=== PATIENT | male | born 1980 | race Asian ===

== ENCOUNTER 2018-05-01 01:09 | Emergency (ER) | payer OTHER ==
[2018-05-01 01:27] LABS: BASOPHIL (%) 0.4 % (0-1); EOSINOPHIL COUNT 0.3 K/uL (0-0.3); HEMATOCRIT 42.7 % (38.0-50.0); HEMOGLOBIN 15.3 G/DL (12.5-16.6); IMMATURE GRANULOCYTE (%) 0.6 % (0.0-0.7); LYMPHOCYTE (%) 40.3 % (15-42); LYMPHOCYTE COUNT 3.9 K/uL (1.0-2.8); MCH 30.4 PG (29.0-34.0); MCHC 35.8 G/DL (30.0-36.0); MCV 84.9 FL (86-99); MONOCYTE (%) 3.8 % (3-12); MONOCYTE COUNT 0.4 K/uL (0-0.8); NEUTROPHIL (%) 51.9 % (45-76); PLATELET COUNT 225 K/uL (156-360); RBC DIS.WIDTH-CV 12.5 % (11.8-14.6); RBC DIS.WIDTH-SD 37.8 % (39-53); RED BLOOD COUNT 5.03 M/uL (4.00-5.50); WHITE BLOOD COUNT 9.6 K/uL (4.1-10.2)
[2018-05-01 01:54] LABS: AMYLASE 49 IU/L (1-118); CHLORIDE 104 MEQ/L (99-109); CREATININE 1.3 MG/DL (0.6-1.3); GFR ESTIMATE (CALCULATED) > 59 mL/min/ (58.99-99999); GLUCOSE 107 mg/dL (70-99); LIPASE 106 U/L (1.0-51.0); POTASSIUM 3.8 MEQ/L (3.7-5.4); SERUM ETHYL ALCOHOL 215 mg/dL; SODIUM 137 MEQ/L (136-147); UREA NITROGEN (BUN) 13 mg/dL (9-23)
[2018-05-01 03:41] LABS: APPEARANCE CLEAR ((CLEAR)); BILIRUBIN NEGATIVE; BLOOD MODERATE; COLOR STRAW ((YELLOW)); GLUCOSE (STRIP) NEGATIVE; KETONES NEGATIVE; LEUKOCYTES NEGATIVE; NITRITE NEGATIVE; PROTEIN (STRIP) 100; SPECIFIC GRAVITY 1.024 (1.000-1.030); UROBILINOGEN 0.2 MG/DL (0.2-1.0)
[2018-05-01 04:00] LABS: AMPHETAMINE NEGATIVE (500 ng/mL); BARBITURATES NEGATIVE (200 ng/mL); BENZODIAZEPINES NEGATIVE (150 ng/mL); BUPRENORPHINE NEGATIVE (10 ng/mL); COCAINE NEGATIVE (150 ng/mL); METHADONE NEGATIVE (200 ng/mL); METHAMPHETAMINE NEGATIVE (500 ng/mL); OPIATES (MORPHINE) NEGATIVE (100 ng/mL); OXYCODONE NEGATIVE (100 ng/mL); PHENCYCLIDINE NEGATIVE (25 ng/mL); PROPOXYPHENE NEGATIVE (300 ng/mL); THC CANNABINOIDS NEGATIVE (50 ng/mL); TRICYCLIC ANTIDEPRESSANTS NEGATIVE (300 ng/mL)
[2018-05-01 04:31] LABS: BACTERIA NONE SEEN /HPF; EPITHELIAL CELLS RARE /HPF; MUCUS NONE SEEN /LPF; RED BLOOD CELLS 0-5 /HPF (0-5); UCUL ADDED? YES
== END 2018-05-01 05:22 | disposition short-term general hospital (02) ==
LOC: TRA 01:09
PROVIDERS: Emergency Medicine
DX: S06.6X9A Traumatic subarachnoid hemorrhage with loss of consciousness of unspecified duration, initial encounter (principal); S72.002A Fracture of unspecified part of neck of left femur, initial encounter for closed fracture; S35.402A Unspecified injury of left renal artery, initial encounter; V03.90XA Pedestrian on foot injured in collision with car, pick-up truck or van, unspecified whether traffic or nontraffic accident, initial encounter; Y93.01 Activity, walking, marching and hiking; Y92.410 Unspecified street and highway as the place of occurrence of the external cause; G80.9 Cerebral palsy, unspecified
CPT/HCPCS: 70450; 71260; 72125; 73502; 74177; 80048; 81003; 82150; 83690; 85025; 86850; 86900; 86901; 87086; 90832; 99281; 99285; G0480

== ENCOUNTER 2018-05-13 12:03 | Inpatient (IN) | payer OTHER ==
[~2018-05-13] VITALS: Ht 165.1 cm; Wt 82.1 kg
[2018-05-13 12:33] VITALS: BP 106/71
[2018-05-13] MEDS ORDERED: PAIN & FEVER325 MG PO (13:15)
[2018-05-13] MEDS ORDERED: ATROPINE SU0.1 MG/ML IV (13:17)
[2018-05-13] MEDS ORDERED: BACLOFEN5 MG PO (13:17)
[2018-05-13] MEDS ORDERED: LOVENOX30 MG/0.3 SC (13:19)
[2018-05-13] MEDS ORDERED: COLACE100 MG PO (13:19)
[2018-05-13] MEDS ORDERED: GABAPENTIN100 MG PO (13:20)
[2018-05-13] MEDS ORDERED: IBU600 MG PO (13:21)
[2018-05-13] MEDS ORDERED: SENNA8.6 MG PO (13:22)
[2018-05-13] MEDS ORDERED: OXYCODONE HCL10 MG PO (13:23)
[2018-05-13] MEDS ORDERED: ROXICODONE5 MG PO (13:23)
[2018-05-13 15:43] VITALS: BP 110/64
[2018-05-13 16:01] LABS: HEMATOCRIT 34.8 % (38.0-50.0); MCH 29.9 PG (29.0-34.0); RBC DIS.WIDTH-CV 13.3 % (11.8-14.6); RBC DIS.WIDTH-SD 43.3 % (39-53); WHITE BLOOD COUNT 9.5 K/uL (4.1-10.2)
[2018-05-13 16:16] LABS: ALBUMIN 4.5 G/DL (3.2-4.8); ALKALINE PHOSPHATASE 123 IU/L (3-129); ALT (GPT) 81 IU/L (3-49); AST (GOT) 19 IU/L (2-34); CHLORIDE 103 MEQ/L (99-109); GFR ESTIMATE (CALCULATED) > 59 mL/min/ (58.99-99999); GLUCOSE 142 mg/dL (70-99); POTASSIUM 4.3 MEQ/L (3.7-5.4); SODIUM 138 MEQ/L (136-147); TOTAL BILIRUBIN 0.5 MG/DL (0.0-1.0); TOTAL PROTEIN 7.7 G/DL (6.4-8.3); UREA NITROGEN (BUN) 19 mg/dL (9-23)
[2018-05-13 16:19] LABS: HEMOGLOBIN 11.5 G/DL (12.5-16.6); MCV 90.6 FL (86-99); PLATELET COUNT 391 K/uL (156-360); RED BLOOD COUNT 3.84 M/uL (4.00-5.50)
[2018-05-14 04:25] VITALS: BP 99/66
[2018-05-14 17:21] VITALS: BP 114/67
[2018-05-15 04:57] VITALS: BP 104/63
[2018-05-15 15:43] VITALS: BP 127/74
[2018-05-16 05:49] VITALS: BP 103/64
[2018-05-16 15:22] VITALS: BP 116/67
[2018-05-17 04:47] VITALS: BP 103/63
[2018-05-17 15:40] VITALS: BP 104/56
[2018-05-18 05:05] VITALS: BP 107/65
[2018-05-18 15:41] VITALS: BP 119/71
[2018-05-19 05:47] VITALS: BP 97/65
[2018-05-19 15:06] VITALS: BP 111/65
[2018-05-20 05:26] VITALS: BP 101/58
[2018-05-20 15:11] VITALS: BP 102/55
[2018-05-21 04:22] VITALS: BP 110/54
[2018-05-21 05:46] LABS: HEMATOCRIT 34.1 % (38.0-50.0); HEMOGLOBIN 10.9 G/DL (12.5-16.6); MCH 29.1 PG (29.0-34.0); MCV 90.9 FL (86-99); PLATELET COUNT 298 K/uL (156-360); RBC DIS.WIDTH-CV 13.5 % (11.8-14.6); RED BLOOD COUNT 3.75 M/uL (4.00-5.50)
[2018-05-21 06:21] LABS: ALBUMIN 3.8 G/DL (3.2-4.8); ALKALINE PHOSPHATASE 114 IU/L (3-129); ALT (GPT) 32 IU/L (3-49); AST (GOT) 16 IU/L (2-34); CHLORIDE 107 MEQ/L (99-109); CREATININE 1.1 MG/DL (0.6-1.3); GFR ESTIMATE (CALCULATED) > 59 mL/min/ (58.99-99999); GLUCOSE 94 mg/dL (70-99); POTASSIUM 4.1 MEQ/L (3.7-5.4); SODIUM 141 MEQ/L (136-147); TOTAL BILIRUBIN 0.3 MG/DL (0.0-1.0); TOTAL PROTEIN 6.4 G/DL (6.4-8.3); UREA NITROGEN (BUN) 16 mg/dL (9-23)
[2018-05-21 16:02] VITALS: BP 103/65
[2018-05-22 05:52] VITALS: BP 101/56
[2018-05-22 15:21] VITALS: BP 112/67
[2018-05-23 04:39] VITALS: BP 107/61
[2018-05-23 15:44] VITALS: BP 107/57
[2018-05-24 05:26] VITALS: BP 102/62
[2018-05-24 16:00] VITALS: BP 118/71
[2018-05-25 05:32] VITALS: BP 114/67
[2018-05-25 15:44] VITALS: BP 121/71
[2018-05-26 04:38] VITALS: BP 103/64
[2018-05-26 15:44] VITALS: BP 119/61
[2018-05-27 05:31] VITALS: BP 116/65
[2018-05-27] MEDS ORDERED: SENNA PLUS TAB1 EACH PO (13:00)
[2018-05-27] MEDS ORDERED: COLACE100 MG PO (13:00)
[2018-05-27] MEDS ORDERED: LO-DOSE ASPIRIN81 M2 PO (13:01)
== END 2018-05-27 14:50 | disposition home health service (06) | DRG 560 ==
LOC: EDSTATUS 12:03 → 3WEST 12:04 → ENPENDDIS 05-27 → 3WEST 05-27 14:50
PROVIDERS: Physical Medicine & Rehabilitation Pain Medicine; Psychiatry & Neurology Neurology
PROC: F07M0ZZ Range of Motion and Joint Mobility Treatment of Musculoskeletal System - Whole Body (ICD-10-PCS; principal; 2018-05-13)
DX: S72.092D Other fracture of head and neck of left femur, subsequent encounter for closed fracture with routine healing (principal); G80.8 Other cerebral palsy; S37.032A Laceration of left kidney, unspecified degree, initial encounter; S27.321A Contusion of lung, unilateral, initial encounter; E87.1 Hypo-osmolality and hyponatremia; D69.6 Thrombocytopenia, unspecified; M25.552 Pain in left hip; G89.18 Other acute postprocedural pain; F41.9 Anxiety disorder, unspecified; K59.00 Constipation, unspecified; V03.10XD Pedestrian on foot injured in collision with car, pick-up truck or van in traffic accident, subsequent encounter
CPT/HCPCS: 73140; 73502; 80053; 85027; 92523 GN; 92610 GN; 97110 GO; 97530 GP; J1650